=== PATIENT | male | born 1980 ===

== ENCOUNTER 2023-01-06 19:15 | Emergency (ER) | payer OTHER, SELFPAY ==
--- NOTE | 2023-01-06 19:23 | ED_ITS ---
HPI - Animal Bite General Chief Complaint: Wound/Laceration Stated Complaint: Dog bite to lip Time Seen by Provider: 01/06/23 19:34 Source: patient, family (Patient's youngest sister), RN notes reviewed and old records reviewed Mode of arrival: EMS Limitations: other (Alcohol intoxication) History of Present Illness HPI narrative: 43-year-old male presents for evaluation after a dog bite. Patient reports that he was at a community event and [place]. He was petting a pit bull. He reports when he tried to back away from the dog, the dog lunged forward and bit him on the right side of the mouth and the upper lip He reports he knows the application development specialist of the dog but does not know if the dog is up-to-date on vaccines The patient reports that he is not up-to-date on his tetanus and will likely posterior He denies any other injuries from dog bite today. Bleeding controlled prior to arrival Related Data Previous Rx's Medication Instructions Recorded amoxicillin 875 mg-potassium 1 tab PO BID #9 tabs 01/06/23 clavulanate 125 mg tablet Allergies Allergy/AdvReac Type Severity Reaction Status Date / Time SHELLFISH Allergy Severe ANAPHYLAXIS Uncoded 02/16/20 15:56 Review of Systems Integumentary/Breasts: Comments: Dog bite to right upper lip PMFSH Social History Social History Advance Directives: No Advance Directives Information Provided: Yes Physical Exam ED Vital Signs: Vital Signs - 24 hr 01/06/23 19:25 01/06/23 21:17 Temperature 97.6 F Pulse Rate 109 H 95 Respiratory Rate 18 18 Blood Pressure 147/95 H 129/84 Pulse Oximetry 98 99 Oxygen Delivery Method Room Air Room Air BMI result Body Mass Index 31.3 HENMT Other: Patient has a 3 cm linear, full-thickness laceration to the right side of the upper lip. It does cross the vermilion border by about 1 cm. There is a smaller, trying that shaped laceration with a flap medial to the supine this blood in nose. Does urine through wound on the inside of the mouth. The patient has 2 small abrasions to the right lateral nose but no deep lacerations to this area Course Course Course Narrative: RME - 43 y/o male presents to the ER for evaluation of a dog bite to his face that occurred just prior to arrival. Bit by someone's dog while at a community event. Lac involved the upper lip and the masood border. Needs tdap. Plan: wound repair, tdap, abx Medications Administered Discontinued Medications Generic Name Dose Route Start Last Admin Trade Name Olivia PRN Reason Stop Dose Admin Amoxicillin/Clavulanate Potassium 875 mg 01/06/23 21:12 01/06/23 21:15 Amoxicillin/Potassium Clav 875 Mg Tablet PO 01/06/23 21:13 875 mg ONCE ONE Administration Diphtheria/Tetanus/Acell Pertussis 0.5 ml 01/06/23 19:58 01/06/23 20:10 Diphth,Pertus(Acell),Tet Adult 0.5 Ml Syringe IM 01/06/23 19:59 0.5 ml .ONCE ONE Administration Lidocaine HCl 5 ml 01/06/23 19:58 01/06/23 20:10 Lidocaine Hcl 1 % Mpf 5 Ml Vial INFILTRATI 01/06/23 19:59 5 ml ONCE ONE Administration Medical Decision Making Medical Decision Making MDM Narrative: Patient has a deep laceration approximately 3 cm to the right lateral upper lip across the vermilion border. Despite the fact this was a dog bite, it will likely have significant a static implications. I discussed the risk of infection with the patient but he would like to proceed with closure. Patient's wound was prepped in a sterile fashion, see procedure note. He will be discharged with Augmentin. The patient's tetanus shot was updated. On from the patient he may follow with his PCP for a referral to Plastic surgery if he is concerned with the way the scar heals. I discussed possible rabies vaccine with the patient and he reports that he will try to get rabies vaccination status from the application development specialist of the dog either tonight or tomorrow before undergoing the rabies vaccination series. I did discuss all this with the patient's over sister who is bedside. They both verbalized understanding Differential Diagnosis Differential Diagnoses: The differential diagnosis associated with the presentation includes Dog bite Laceration Puncture wound Cellulitis Procedures Laceration Laceration 1: Site: lip Side (If applicable): right Size (cm): 3 Description: linear Depth: simple, single layer Local Anesthetic: lidocaine 1% Amount of anesthesia used (mL): 4 Pre-repair: wound explored and irrigated extensively Skin layer closed with: nylon Size (cm): 6-0 Number of sutures: 6 Technique: simple, interrupted Laceration 2: Site: lip Side (If applicable): right Size (cm): 1 Description: flap Depth: simple, single layer Pre-repair: wound explored and irrigated extensively Skin layer closed with: nylon Size (cm): 6-0 Number of sutures: 2 Technique: simple, interrupted Discharge Plan Discharge Clinical Impression: Dog bite of face, Laceration Patient Disposition: Home, Self-Care Instructions: Animal Bite (ED) Additional Instructions: You had a total of 8 sutures placed today. You had 6 on the more lateral wound that was larger and 2 separate sutures just underneath her nose These can be removed in 5-7 days Keep the area clean and dry Your tetanus was updated today Return within 7 days if you are unable to determine the dog's rabies status or if you change your mind aside to get the rabies vaccine And Augmentin twice daily for the next 5 days Prescriptions: New amoxicillin-pot clavulanate 875-125 mg tablet 1 tab PO BID Qty: 9 0RF Interventions: ED Discharge Assessment Last Done: 01/06/23 21:22 Discharge Date/Time: 01/06/23 21:24
[2023-01-06 19:25] VITALS: BP 147/95; PULSE 109; RESP 18; TEMP 36.4; O2SAT 98; BMI 31.3
[2023-01-06] MEDS: Diphth,Pertus(ACell),Tet Adult 0.5 ML SYRINGE IM (20:10)
[2023-01-06] MEDS: Lidocaine HCl 1 % MPF 5 ML VIAL INFILTRATI (20:10)
[2023-01-06] MEDS: Amoxicillin/Potassium Clav 875 MG TABLET PO (21:15)
[2023-01-06 21:17] VITALS: BP 129/84; PULSE 95; RESP 18; O2SAT 99
== END 2023-01-06 21:24 | disposition home or self-care (01) ==
PROVIDERS: Emergency Provider Emergency Medicine Emergency Medical Services
DX: S01.85XA Open bite of other part of head, initial encounter (principal); W54.0XXA Bitten by dog, initial encounter; Y93.9 Activity, unspecified; Y92.9 Unspecified place or not applicable; Y99.9 Unspecified external cause status; Z23 Encounter for immunization
CPT/HCPCS: 12013; 90471; 90715; 99283; 99284

== ENCOUNTER 2023-01-14 11:12 | Emergency (ER) | payer OTHER, SELFPAY ==
[2023-01-14 11:20] VITALS: BP 160/90; PULSE 69; RESP 18; TEMP 36.9; O2SAT 98; BMI 32.1
--- NOTE | 2023-01-14 11:27 | PC.NURSE ---
eval and dc by PIT
--- NOTE | 2023-01-14 11:28 | ED_ITS ---
HPI - Skin/Abscess/Foreign Bdy General Chief complaint: Skin/Abscess/Foreign Body Stated complaint: Suture removal Time Seen by Provider: 01/14/23 11:28 Source: patient, RN notes reviewed and old records reviewed Mode of arrival: ambulatory History of Present Illness HPI narrative: 43-year-old male presenting to the ED for suture removal s/p sutures placed in this ED on 01/06. Patient was bit by a pit bull, had 8 sutures placed, reports compliance with antibiotics, finished them yesterday. Denies fever/chills, drainage from area Onset (ago): day(s) Related Data Previous Rx's Medication Instructions Recorded amoxicillin 875 mg-potassium 1 tab PO BID #9 tabs 01/06/23 clavulanate 125 mg tablet Allergies Allergy/AdvReac Type Severity Reaction Status Date / Time SHELLFISH Allergy Severe ANAPHYLAXIS Uncoded 02/16/20 15:56 Review of Systems Review of Systems: Constitutional: No Fever, No Chills ENT/Mouth: No Ear Pain, No Nasal Congestion, No sore throat, No Rhinorrhea, No Swallowing Difficulty Cardiovascular: No Chest Pain, No SOB Respiratory: No Cough, No Sputum, No Wheezing Musculoskeletal: No joint pain, No Myalgias, No Joint Swelling Skin: + Skin Lesions, No rash Neuro: No Weakness, No Numbness, No Paresthesias Yes all other systems are reviewed and are negative Constitutional: Constitutional: Reports as per [facility] Past Medical History Attestation statement: The following information was validated with the patient. Source: old records reviewed Physical Exam Vital Signs: Vital Signs: Last Vital Signs Temp 98.4 F 01/14/23 11:20 Pulse 69 01/14/23 11:20 Resp 18 01/14/23 11:20 BP 160/90 H 01/14/23 11:20 Pulse Ox 98 01/14/23 11:20 O2 Del Method Room Air 01/14/23 11:20 BMI result Body Mass Index 32.1 Const: General: cooperative, healthy appearing and no acute distress Orientation/consciousness: patient oriented x3 Limitations: no limitations HEENT: Other: 6 sutures intact to right upper lip, and 2 to vermilion border, appropriate wound healing, no dehiscences, no erythema, fluctuance or induration Head: Yes normal to inspection and Yes atraumatic Ears: hearing grossly normal bilaterally General nose exam: Normal external nose present Eyes: General: appearance normal, both eyes and all related structures EOM: EOMs intact bilaterally Neck: Neck: Yes normal visual inspection and Yes no meningeal signs Resp: Effort & Inspection: normal respiratory effort and no respiratory distress Cardio: Rate: regular rate Skin: Rashes: no rashes Neuro: General: patient oriented x3, tone normal and no meningeal signs Cranial nerves: Yes CN's II-XII intact bilaterally Gait exam (Neuro): Normal gait present Extrem: General: Yes normal to inspection Medical Decision Making Medical Decision Making MDM Narrative: 43-year-old male presenting to the ED for suture removal s/p sutures placed in this ED on 01/06. Patient was bit by a pit bull, had 8 sutures placed, reports compliance with antibiotics, finished them yesterday. On exam vital signs stable, NAD, nontoxic-appearing, 8 sutures intact with appropriate wound healing, sutures removed without complications. No evidence of cellulitis or abscess Results discussed with patient including worrisome signs and symptoms and strict return precautions, and when to return to the emergency department. They verbalized understanding and feel safe for discharge at this time. Differential Diagnosis Differential Diagnoses: The differential diagnosis associated with the presentation includes As above External Record Review External record reviewed: Inpatient record, Office record, Outpatient record, Prior outpatient labs, Prior outpatient radiology, Primary care record and Outside ED record Tests considered The following testing was considered but not selected: As above Prescription Management I considered prescription management with: Pain Medication and Antibiotic Procedures Procedure Narrative Procedure Narrative: Suture Removal: 8 sutures removed w/o complications No dressing applied Discharge Plan Discharge Clinical Impression: Visit for suture removal Patient Disposition: Home, Self-Care Additional Instructions: Apply anti scar cream like Mederma to area If area begins look infected, is red, there is drainage, streaking, or you have fever please return to the emergency department Prescriptions: No Action amoxicillin-pot clavulanate 875-125 mg tablet 1 tab PO BID Qty: 9 0RF Referrals: Physician,None [Physician] -
== END 2023-01-14 11:30 | disposition home or self-care (01) ==
LOC: HO.ED 11:30
PROVIDERS: Emergency Provider Emergency Medicine; PCP Internal Medicine
DX: Z48.02 Encounter for removal of sutures (principal)
CPT/HCPCS: 99282